=== PATIENT | female | born 1975 | race Caucasian/White ===

== ENCOUNTER 2018-04-08 12:07 | Emergency (ER) | payer SELFPAY ==
[2018-04-08 12:08] VITALS: BP 153/95; PULSE 74; RESP 16; TEMP 36.6; O2SAT 99; BMI 24.8
[2018-04-08] MEDS: HYDROmorphone 1 MG/ML Syringe IM (13:32)
--- NOTE | 2018-04-08 14:24 | ED.DCSUM_ITS ---
- ER Visit Summary Date of Service: 04/08/18 Chief Complaint: Abscess History of Present Illness: The patient is a [address] Cortez. She reports that she has an abscess medial left thigh that began March 26. She was seen at a [facility] in [place] 2 days ago and had an I&D performed. She states that since that time the pain and swelling has been worsening. She describes an aching pain is 10 out of 10 at worst and 7-10 currently. Is worsened by touching it. Is relieved by nothing. 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 She is currently on Bactrim and Keflex. She denies any fever or chills. Physical Examination: Vitals: Stable. Afebrile. General: Well-nourished and well-developed. Head: Normocephalic atraumatic. Neck: Supple, no lymphadenopathy. No JVD. Nontender. Cardiovascular: Regular rate and rhythm. No murmurs. Respiratory: No respiratory distress. Clear to auscultation bilaterally. Abdominal: Soft, nontender, nondistended, normal bowel sounds. No guarding, rebound, or peritoneal signs. Back: Nontender. Extremities: Nontender, no edema. Skin: Approximately 6 cm in diameter area of induration and erythema. No appreciable fluctuance. There is a 5 mm incision medial and inferior to this area. There is no drainage from this. Neurologic: Alert and oriented ?3. Cranial nerves II through XII are intact. Normal strength and sensation. Psych: Normal affect. Emergency Department Course and Treatment: I had a prolonged discussion with patient about treatment options and she opted for a for more formal incision and drainage. This was performed and she tolerated it well. She was given a milligram of Dilaudid IM prior to this. Treatment Plan: Patient will be discharged instructions to follow-up Dr. Koffi Godfrey in 2 days for wound check. Continue her Keflex and Bactrim. She will be given [place] for pain. Return to the emergency department for any worsening symptoms. Disposition: To home in improved and stable condition. Impression: 1. Abscess left thigh. 2. I&D. Procedure Note: Abscess was cleansed with chlorhexidine soap. Anesthetized with 1% lidocaine without epinephrine. An incision was made with an 11 scalpel blade. A moderate amount of pus was drained. Curved hemostats were used to break up loculations. The wound was copiously irrigated with normal saline. I placed the iodoform gauze between the incision that I have made and the small incision that she had from her previous I&D. The patient tolerated it well. This note was generated with [employer] dictation software. It may contain incorrect words, spelling, and punctuation that were not noted in review of the chart prior to signing ED Disposition - Plan for ED Patient: Disposition: Home or Assisted Living Chief Complaint: Abscess Instructions: ED Abscess IandD Prescriptions: Hydrocodone/Acetaminophen [[place] 5-325 Tablet] 1 - 2 each PO 4X/DAY PRN PRN 3 Days #12 tablet PRN Reason: Pain Referrals: Koffi Godfrey MD [STAFF PHYSICIAN] - 2 Days for wound check
[2018-04-08 14:38] VITALS: PULSE 71; RESP 17; O2SAT 95
== END 2018-04-08 14:40 | disposition home or self-care (01) ==
PROVIDERS: Emergency Provider Emergency Medicine; Family Provider Family Medicine; PCP Family Medicine
DX: L02.416 Cutaneous abscess of left lower limb (principal); B96.89 Other specified bacterial agents as the cause of diseases classified elsewhere; Z86.14 Personal history of Methicillin resistant Staphylococcus aureus infection
CPT/HCPCS: 10061; 10060; 99283

== ENCOUNTER → 2018-07-02 13:53 | Outpatient (CLI) | payer OTHER, MEDICAID, SELFPAY ==
[2018-07-02 15:52] LABS: Anion Gap 6 (5-15); BUN 15 mg/dL (7-18); BUN/Creat Ratio 22.1 RATIO (10-20); Calcium,Total 9.4 mg/dL (8.5-10.1); Chloride 104 mmol/L (98-107); Cholesterol 211 mg/dL (200); Creatinine, Serum 0.68 mg/dL (0.55-1.02); EST Glomerular Filtration Rate 100 mL/min (>60); Est Glom Filt Rate - Afr Amer 121 mL/min (>60); Glucose 63 mg/dL (74-106); High Density Lipoprotein 45 mg/dL; Potassium 4.5 mmol/L (3.5-5.1); Sodium Level 139 mmol/L (136-145); Triglycerides 157 mg/dL; Very Low Density Lipoprotein 31 mg/dL (5-40)
== END ==
PROVIDERS: Family Provider Family Medicine; PCP Family Medicine; Visit Provider Family Medicine
DX: I10 Essential (primary) hypertension (principal)
CPT/HCPCS: 36415; 80048; 80061

== ENCOUNTER → 2018-10-08 12:09 | Outpatient (CLI) | payer MEDICAID, SELFPAY ==
--- NOTE | 2018-10-08 12:15 | RAD_ITS ---
STUDY: X-RAY - LUMBAR SPINE REASON FOR EXAM: Female, 43 years old. Low back pain TECHNIQUE: 5 view(s) of the lumbar spine were obtained. COMPARISON: None FINDINGS: Normal lumbar lordosis. There is a levoscoliosis of the lumbar spine. There is a normal alignment of the vertebrae. Normal vertebral bodies and endplates. There is multi-level degenerative disc disease with multi-level disc space narrowing. There is no demonstrated fracture. The soft tissue structures are unremarkable. RAD/L/S Spine Min 4 Views IMPRESSION: Degenerative changes with a levoscoliosis. Electronically Signed: Amado Aguayo MD at 21:18 EST , Service support ,
== END ==
PROVIDERS: Family Provider Family Medicine; PCP Family Medicine; Referring Provider Nurse Practitioner Family; Visit Provider Nurse Practitioner Family
DX: M51.36 Other intervertebral disc degeneration, lumbar region (principal); M51.26 Other intervertebral disc displacement, lumbar region; M47.26 Other spondylosis with radiculopathy, lumbar region; M96.1 Postlaminectomy syndrome, not elsewhere classified
CPT/HCPCS: 72110

== ENCOUNTER 2018-10-18 15:30 | Outpatient (RCR) | payer MEDICAID, SELFPAY ==
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
--- NOTE | 2018-12-03 13:42 | HP.PT.NRP ---
HP - Discharge Summary (1) - Patient Information NORBERTO MENESES was seen in my office for initial evaluation on 10/14/18. The following Plan of Care was established for this patient: Initial Frequency: 2-3x /Week Initial Duration: 4-6 Weeks - Anticipated Interventions Patient/Client Instruction: Educate patient on: Condition, Plan of Care, Risk Factors, Benefits of Fitness Program For the Purpose of:: To improve self management Therapeutic Exercise to Include: Strength training, Body mechanics, Postural training, Flexibilty training, Gait and locomotor training, In an aquatic setting, Active ROM, Dynamic Lumbar Stabilization For the Purpose of:: To decrease pain, To increase ROM, To improve muscle performance and motor function, To increase tolerance to activity/condition/position, To improve ability of physical actions for home/community/work/leisure, To improve gait and locomotor functions This patient was last seen in our office 10/18/18. Pertinent comments regarding their Physical therapy will appear below: This patient has not returned to Physical Therapy and is appropriate to return to MD for further follow-up as needed. At this point I will be discontinuing this patient from physical therapy. I would be happy to see this patient again in the future if found appropriate by the physician. Thank you! Fadumo Hardin, PT, Cert MDT
== END 2018-10-18 19:00 | disposition home or self-care (01) ==
LOC: PT 15:30
PROVIDERS: Family Provider Family Medicine; PCP Family Medicine; Referring Provider Nurse Practitioner Family; Visit Provider Nurse Practitioner Family
DX: M51.36 Other intervertebral disc degeneration, lumbar region (principal); M79.10 Myalgia, unspecified site; M96.1 Postlaminectomy syndrome, not elsewhere classified; M54.16 Radiculopathy, lumbar region; M47.816 Spondylosis without myelopathy or radiculopathy, lumbar region
CPT/HCPCS: 97113; 97162; 97530

== ENCOUNTER 2018-11-04 15:58 | Emergency (ER) | payer MEDICAID, SELFPAY ==
[2018-11-04 15:59] VITALS: BP 152/95; PULSE 82; RESP 15; TEMP 36; O2SAT 100; BMI 26.2
[2018-11-04] MEDS: Ketorolac 15 MG/ML Vial IV (18:15)
--- NOTE | 2018-11-04 19:05 | ED.VISSUMM ---
- ER Visit Summary Date of Service: 11/04/18 Chief Complaint: Exacerbation of chronic left lumbar pain with radiation posterior left lower extremity to her toes History of Present Illness: The patient is a 43 F who presents with worsening low back pain since July. She is presently under the care of Dr. Napier, pain management. She denies bowel bladder dysfunction. Denies saddle paresthesia or anesthesia. She prefers to stand over sitting. She denies foot drop. She denies quadricep weakness going up or down steps. She denies fever or chills. She denies night sweats or weight loss. She denies IV drug use. She denies dysuria, frequency, urgency or hematuria. She denies symptoms of claudication. Please read her note for complete detail Physical Examination: Vital signs are marked for an elevated blood pressure 152/95. HEENT exam is unremarkable. Heart is regular without murmur, gallop or rub. S1 and S2 are normal. Lungs are clear to auscultation with good movement of air bilaterally. Abdomen soft nontender bowel sounds present normal. There is no CVA tenderness noted. Straight leg test elicits pain at 25-30 degrees on the left. Negative crossover test. Patella and ankle reflex are 2+ and symmetric. EHL is intact. Able to walk on heels and toes. Able to do one leg squat right and left. Reports abnormal sensation lateral medial aspect of the foot. DP and PT pulses are palpable. The remainder of exam is unremarkable. Test Results: None were obtained Emergency Department Course and Treatment: Since patient drove herself she was treated with 50 mg of Toradol. She was reassessed. She was not given opiate analgesia because she is in pain management and she has to drive herself home Treatment Plan: Follow-up with Dr. Napier and appropriate home-going instructions Disposition: Discharged home in stable and improved condition Impression: Exacerbation left lower back pain with sciatica This note was generated with [employer] dictation software. It may contain incorrect words, spelling, and punctuation that were not noted in review of the chart prior to signing ED Disposition - Plan for ED Patient: Disposition: Home or Assisted Living Instructions: ED Sciatica, ED Hypertension Poss Referrals: Richelle Cortez MD [Primary Care Provider] - 1-2 Weeks Additional Instructions: Follow-up with Dr. Whittaker for blood pressure reassessment in 1-2 weeks. Follow-up with Dr. Napier regarding back pain.
[2018-11-04 19:18] VITALS: BP 167/110; RESP 18
== END 2018-11-04 19:20 | disposition home or self-care (01) ==
PROVIDERS: Emergency Provider Emergency Medicine; Family Provider Family Medicine; PCP Family Medicine
DX: M54.42 Lumbago with sciatica, left side (principal); G89.29 Other chronic pain; Z72.0 Tobacco use
CPT/HCPCS: 96374; 99283; A4216

== ENCOUNTER 2019-03-30 13:05 | Emergency (ER) | payer MEDICAID, SELFPAY ==
[2019-03-30 13:06] VITALS: BP 147/80; PULSE 75; RESP 16; TEMP 36.8; O2SAT 97; BMI 24.0
--- NOTE | 2019-03-30 13:08 | ED.VISSUMM ---
- ER Visit Summary Date of Service: 03/30/19 Chief Complaint: Back and left leg pain History of Present Illness: The patient is a [address] Cortez. She reports that she has pain in her lower back that radiates down the back of her left leg to the level of her ankle. It is a sharp pain is 10 on 10 severity. Its worsened by movement, heat, or standing for prolonged periods of time. She taken Tylenol and Advil with minimal relief. Pain is 10 out of 10 currently and at worst. She reports that she has tingling in that leg that comes and goes. It is not tingling now. She denies any problems with her bowels or bladder. No groin numbness. No recent trauma. No fall, MVA, change in activity. She denies fever, chills, and other red flags. Physical Examination: Vitals: Stable. Afebrile. General: A&O x 3. NAD. Cardiovascular exam: Regular rate and rhythm, no murmur, rub or gallop. Respiratory exam: Clear to auscultation bilaterally. No wheezes or stridor. Abdominal exam: Soft, nontender, nondistended, normal bowel sounds. No peritoneal signs. Back: Diffuse moderate tenderness to palpation over the lumbar spine and the paraspinous musculature in the lumbar region. No point tenderness. Positive straight leg raise on the left at approximately 10 degrees while sitting. 5/5 DF, PF, EHL bilaterally. Normal sensation to light touch throughout. Extremity: No clubbing, cyanosis, or edema. Emergency Department Course and Treatment: Patient was given a dose of Toradol IM. An [facility] report was obtained which shows she is had no prescriptions for opiates since March 2018. Treatment Plan: Patient will be discharged with prescription for naproxen and [place]. Instructed to follow-up Dr. Cortez in 1 week if not improving. Return to the emergency department for any worsening symptoms. Disposition: To home in improved and stable condition. Impression: 1. Sciatica on left. This note was generated with [employer] software. It may contain incorrect words, spelling, and punctuation that were not noted in review of the chart prior to signing ED Disposition - Plan for ED Patient: Instructions: BACK PAIN w/ SCIATICA Prescriptions: Naproxen [Naprosyn] 500 mg PO BID #14 tablet Hydrocodone Bitart/Apap 5-325 [[place] 5MG-325MG] 1 tablet PO Q6H PRN PRN 3 Days #10 tablet PRN Reason: Pain Referrals: Richelle Cortez MD [Primary Care Provider] - 1 Week if not improving
[2019-03-30] MEDS: Ketorolac 60 MG/2 ML Vial IM (13:28)
== END 2019-03-30 14:06 | disposition home or self-care (01) ==
LOC: ED 13:37
PROVIDERS: Emergency Provider Emergency Medicine; Family Provider Family Medicine; PCP Family Medicine
DX: M54.42 Lumbago with sciatica, left side (principal); I10 Essential (primary) hypertension; Z79.899 Other long term (current) drug therapy
CPT/HCPCS: 96372; 99282

== ENCOUNTER → 2019-04-28 17:04 | Outpatient (CLI) | payer OTHER, SELFPAY ==
[2019-03-30 13:06] VITALS: BMI 24.0
--- NOTE | 2019-04-28 17:09 | RAD_ITS ---
STUDY: X-RAY - LUMBAR SPINE REASON FOR EXAM: Female, 43 years old. Back pain radiating to left leg TECHNIQUE: 4 view(s) of the lumbar spine were obtained. COMPARISON: October 08, 2018 FINDINGS: Normal lumbar lordosis. There is moderate levo scoliosis. Grade 1 spondylolisthesis at L4-5. No evidence for acute fracture or subluxation.. Mild multilevel disc space narrowing and ossific spurring. The soft tissue structures are unremarkable. No significant change since prior study RAD/Lumbar Spine 2 or 3 Views IMPRESSION: Scoliosis and degenerative changes. No evidence for acute fracture or other significant bony pathology Electronically Signed: Yandel Deleon MD at 18:58 EDT , Service support ,
== END ==
PROVIDERS: Family Provider Family Medicine; PCP Family Medicine; Referring Provider Family Medicine; Visit Provider Family Medicine
DX: M79.605 Pain in left leg (principal); M41.9 Scoliosis, unspecified
CPT/HCPCS: 72100

== ENCOUNTER 2019-04-30 17:14 | Emergency (ER) | payer OTHER, SELFPAY ==
[2019-04-30 17:16] VITALS: BP 134/88; PULSE 101; RESP 17; TEMP 36.2; O2SAT 99; BMI 24.0
[2019-04-30 17:29] VITALS: RESP 16
[2019-04-30] MEDS: Naproxen 250 MG Tablet 500 MG PO (17:33)
[2019-04-30] MEDS: HYDROcodone Bitartrate/Apap 5/325 Tablet PO (17:33)
--- NOTE | 2019-04-30 17:37 | ED.VISSUMM ---
- ER Visit Summary Date of Service: 04/30/19 Chief Complaint: Postop pain History of Present Illness: The patient is a 43 F who had a carpal tunnel release and cyst removed by Dr. Quiroz earlier today. She was instructed to come to the emergency department as a private outpatient. Physical Examination: Patient seen by orthopedist directly Test Results: Applicable Emergency Department Course and Treatment: Outpatient of orthopedist, Dr. shamir Alejandre Treatment Plan: Per surgeon Disposition: Discharge to home Impression: Postop pain This note was generated with [employer] dictation software. It may contain incorrect words, spelling, and punctuation that were not noted in review of the chart prior to signing ED Disposition - Plan for ED Patient: Disposition: Home or Assisted Living Diagnosis: Postoperative pain of extremity Instructions: POST OP WOUND CHECK, Pain Referrals: Richelle Cortez MD [Primary Care Provider] - Diana Quiroz DO [STAFF PHYSICIAN] - [facility] appointment
--- NOTE | 2019-04-30 17:56 | ED.DCSUM_ITS ---
History of Present Illness Chief Complaint: Lower Extremity Injury Informant: Patient Onset: Month(s) Context: Sudden Onset - Suddenly worse over the past several days Chronic pain exacerbated by: Nothing in particular Injury: - - Nothing per patient Timing: Continuous Quality: Aching, Throbbing Location: Lumbar, Buttock, Left Leg - Posteriorly to the midfoot Current Severity: Mild Maximum Severity: Moderate Worsened by: improves with: Movement, Bending Relieved by: Nothing Associated Symptoms: Radiation to Left Leg, - - No bowel bladder dysfunction. No saddle paresthesia anesthesia. Reports decreased sensation left lower extremity. The decreased sensation is not in a dermatomal distribution. She denies foot drop. She denies quadricep weakness. Only positives were circled because negatives could not be\because template is incomplete Narrative: Patient is a 43-year-old woman with history of back pain who presents with radicular pain/sciatica left side. Pain is worse over the past couple days. She denies any neurologic deficits or symptoms and has no red flags. There is no history of trauma. She had outpatient x-rays this past week. Prior similar symptoms: Yes Recent Illness/Hospitalization: Yes - Past Medical History (1) Chronic pain syndrome Status: Chronic (2) Depression Status: Chronic Past Medical History - Allergies and Home Meds Allergies/Adverse Reactions: Allergies bee venom protein (honey bee) Allergy (Verified 04/30/19 17:15) Angioedema Primary Care Physician: Diana Quiroz DO [STAFF PHYSICIAN] - [facility] appointment Richelle Cortez MD [Primary Care Provider] - Surgical History: noncontributory Lives: Spouse/ Significant Other, With Family Smoking Status: Never smoker Alcohol: Rare Drugs: None Review of Systems General: Denies: Chills, Fever, Malaise, Subjective, Sweats, Weight loss Eyes: Denies: Visual changes - bilaterally, Blurred Vision - bilaterally, Diplopia ENT: Denies: Rhinorrhea, Sore throat Cardiovascular: Denies: Chest pain, Palpitations Respiratory: Denies: Dyspnea, Cough, Dyspnea on exertion Gastrointestinal: Denies: Abdominal pain, Nausea, Vomiting, Diarrhea, Melena, Hematochezia Genitourinary: Denies: Dysuria, Hematuria, Frequency Musculoskeletal: Reports: Back pain, Extremity Pain. Denies: Myalgias, Arthralgias, Neck pain, Swelling Skin: Denies: Rash, Wounds Neurological: Denies: Headache, Weakness, Parasthesia, Numbness - Left lower extremity Endocrine: Denies: Polyuria, Polydipsia Hematologic: Denies: Easy bruising, Easy bleeding Physical Exam Vital Signs/Narrative: Vital Signs Temp Pulse Resp BP Pulse Ox 04/30/19 17:29 16 04/30/19 17:16 97.1 F L 101 H 17 134/88 H 99 Inital Vital Signs reviewed: Yes Back: Normal Inspection, Paraspinal Tenderness, Negative SLR - Right, Positive SLR - Left. Negative for: Nontender, Surgical Scar, Spinal tenderness, CVA tenderness, Positive SLR - Right, Negative SLR - Left Extremeties: Nontender, No edema, Strong Pulses, Symmetric Skin: Normal color, No rash. Negative for: Cyanosis, Diaphoresis, Jaundice, No Trauma Neuro: Alert, Oriented, Normal Strength, Normal Sensation, Normal DTR, Normal Gait - No foot drop was noted. Patient able to walk on heels and toes. Patient was able to perform 1 legged squat right and left side. Normal sensation on the lateral, dorsal and medial side of right and left foot., Normal Reflexes, Normal Cerebellar Reflexes: Right Patellar, Right Achilles, Left Patellar, Left Achilles, - - DTR 2+ symmetric. Negative for: Right Clonus, Right Babinski, Left Clonus, Left Babinski Psychological: Normal affect, Normal Mood Diagnostic/Tx/Re-eval - Medical Decision Making Patient with radicular pain and positive straight leg test concerned she has a L5 disc. Since there are no objective neurologic deficits emergent MRI is not indicated. Patient was medicated with NSAID and opiate analgesia. She was discharged with short course of opiate analgesia and instructed follow-up with her primary care physician. She states she was on gabapentin at one time and was not helpful. ED Disposition - Plan for ED Patient: Disposition: Home or Assisted Living Diagnosis: Left-sided low back pain with sciatica Instructions: BACK PAIN w/ SCIATICA Prescriptions: Naproxen [Naprosyn] 500 mg PO BID #14 tab Prescription Printed Hydrocodone Bitart/Apap 5-325 [[place] 5MG-325MG] 1 tab PO Q6H PRN PRN 3 Days #10 tab PRN Reason: Pain Prescription Printed Referrals: Richelle Cortez MD [Primary Care Provider] - 1 Week if not improving
[2019-04-30 18:17] VITALS: BP 140/88; PULSE 86; RESP 16; O2SAT 94
== END 2019-04-30 18:18 | disposition home or self-care (01) ==
PROVIDERS: Emergency Provider Emergency Medicine; Family Provider Family Medicine; PCP Family Medicine
DX: M54.42 Lumbago with sciatica, left side (principal)
CPT/HCPCS: 99283

== ENCOUNTER 2019-05-29 18:59 | Emergency (ER) | payer MEDICAID, SELFPAY ==
[2019-05-29 19:00] VITALS: BP 153/84; PULSE 89; RESP 16; TEMP 36.1; O2SAT 97; BMI 26.4
--- NOTE | 2019-05-29 19:36 | ED.VISSUMM ---
- ER Visit Summary Date of Service: 05/29/19 Chief Complaint: Sciatica History of Present Illness: The patient is a 43 F who presents with left-sided sciatica that has been getting worse over the past several days. Patient states she normally takes Vicodin for this but is out. Patient states her primary care physician is unable to refill her prescription for this. Patient denies any bowel or bladder changes. Patient denies any saddle anesthesia. Patient does admit to some numbness and tingling in her left leg. Patient states the pain is worse with standing after sitting for a prolonged time. Physical Examination: Vital signs are stable. Patient is afebrile. Patient is in no acute distress. Musculoskeletal exam reveals tenderness over the left lower lumbar paraspinal area and over the left sciatic notch. Strength is 5/5 bilateral and lower extremities. There are no sensory deficits noted. Deep tendon reflexes were 2/4 bilaterally. Range of motion of the lumbar spine was slightly limited secondary to pain. Pedal pulses are equal bilaterally. Emergency Department Course and Treatment: Patient was given an injection of morphine here. Patient was advised that we do not refill narcotic pain prescriptions. Patient was instructed to follow-up with her primary care physician in 3 to 5 days for further management of her sciatic pain. She was instructed to use ice to the area. Patient was also instructed to take ibuprofen as needed for pain. Patient understood and was agreeable with the plan. All questions were answered. Disposition: Discharge home Impression: Sciatica This note was generated with [employer] dictation software. It may contain incorrect words, spelling, and punctuation that were not noted in review of the chart prior to signing ED Disposition - Plan for ED Patient: Disposition: Home or Assisted Living Diagnosis: Sciatica Instructions: BACK PAIN w/ SCIATICA Referrals: Richelle Cortez MD [Primary Care Provider] - 3-5 Days
[2019-05-29] MEDS: Morphine 4 MG/ML Syringe IM (19:55)
[2019-05-29 20:23] VITALS: PULSE 76; RESP 18; O2SAT 98
== END 2019-05-29 20:25 | disposition home or self-care (01) ==
LOC: ED 19:59
PROVIDERS: Emergency Provider Emergency Medicine; Family Provider Family Medicine; PCP Family Medicine
DX: M54.32 Sciatica, left side (principal); I10 Essential (primary) hypertension
CPT/HCPCS: 96372; 99282

== ENCOUNTER 2019-07-03 17:00 | Outpatient (RCR) | payer MEDICAID, SELFPAY ==
--- NOTE | 2019-05-15 18:11 | HP.PTEVAL ---
Patient's Visit Information NORBERTO MENESES is a 43 year old F referred to Physical Therapy by Richelle Cortez MD with a diagnosis of LBP. Date of Evaluation: 05/15/19 Physical Therapist: Shadi Randolph, PT, [facility] - Visit Plan Frequency: 3x /Week Duration: 4 Weeks Plan: Postural education, prone lying on elbows progression to REIL when tolerated, core stab ex's, US, IF with - Subjective Findings: Pt reports she has had LBP for greater than one year. Pt reports she was treated by PT and the pain went away, but her pain is back at this time. Pt reports her pain had an insidious onset in nature. Pt reports she has been treated by a chiropractor, but has had very minimal improvements at this time. Pt reports she has pain that radiates into her L foot that is constant. Pt reports she has had xrays which revealed OA. Pt reports all activity increases her pain. Pt reports sleep difficulty secondary to pain. Pt reports ice will temporarily help haer pain. 9/10 pain at rest, 10/10 at worst. 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 - Pain LBP Pain Intensity (Out of 10): 9 Pain Intensity Range: 10 - Objective Neuro: B LE sensation is WNL to light touch. B patellar reflex= 2/3. MMT: R LE 5/5 throughout. L LE 3+/5 and painful throughout. L/S ROM: Pt is severely limited with ext and L SB ROM. Others are WNL. Special tests: Positive ANRS. Repeated moivements: NT. prone on elbows 1 min x 3 decreased pain minimally - Goals Goal 1:: Decrease LBP x 50% to aid with sleep Goal Time Frame: 2-4 Weeks Goal 2:: Increase L/S ROM x 1 grade to aid with decreasing pain Goal Time Frame: 2-4 Weeks Goal 3:: Decrease L LE radiculopathy x 50% to aid with tolerance for ambulation Goal Time Frame: 2-4 Weeks Goal 4:: I WITH HEP Goal Time Frame: 2-4 Weeks - Rehabilitation Potential Physical Therapy Diagnosis: Pt has LBP, decreased L/S ROM, and L LE radiculopathy secondary to L/S disc derrangement. Rehabilitation Potential: Good - Anticipated Interventions Patient/Client Instruction: Educate patient on: Condition, Plan of Care For the Purpose of:: To improve self management Therapeutic Exercise to Include: Strength training, Endurance training, Body mechanics, Postural training, Dynamic Lumbar Stabilization, Kevon Exercises For the Purpose of:: To decrease pain, To increase ROM, To improve muscle performance and motor function Cryotherapy (ice pack, ice massage): Yes For the Purpose of:: To decrease pain Thank you for the opportunity to evaluate your patient. For Medicare and Medicare HMO plans, please review the plan of care and approve it. It will need to be FAXED BACK to us at [phone] for Medicare purposes. For Medicare only, by signing this I certify the plan of care. Please let me know if there are questions or concerns regarding this plan of care. Physician Signature: Date:
--- NOTE | 2019-07-03 17:22 | HP.PTDCSUM ---
HP - PT D/C Summary It has been my pleasure to treat NORBERTO MENESES under orders from Richelle Cortez MD, for the diagnosis of LBP for a total of 12 visit(s). Discharge Date: Please see the following information for a summary of their discharge status. - Subjective Subjective: Pt reports she is definitely getting better. Ready for HEP - Pain LBP Pain Intensity (Out of 10): 5 LEFT LEG Pain Intensity (Out of 10): 5 - Overall Improvement % Improvement: 50 - Objective Objective/Function: LBP is 5/10 at this time. L/S ROM is WNL with exception to ext which is moderately limited. L LE radiculopathy is 50% better at this time. I with HEP. Progressing well toward Rx goals - Goals Goal 1:: Decrease LBP x 50% to aid with sleep Goal Progress: Progressing Goal 2:: Increase L/S ROM x 1 grade to aid with decreasing pain Goal Progress: Progressing Goal 3:: Decrease L LE radiculopathy x 50% to aid with tolerance for ambulation Goal Progress: Goal Met Goal 4:: I WITH HEP Goal Progress: Goal Met - Plan Plan: discontinue - D/C Information If there are questions or concerns regarding this patient's physical therapy, please feel free to call me at [phone]. Thank you for the referral of this patient. Sincerely, Shadi Randolph, PT, ATC
== END 2019-07-03 19:00 | disposition home or self-care (01) ==
LOC: PT 17:00
PROVIDERS: Family Provider Family Medicine; PCP Family Medicine; Referring Provider Family Medicine; Visit Provider Family Medicine
DX: M54.32 Sciatica, left side (principal)
CPT/HCPCS: 97014; 97110; 97161; 97530; G0283

== ENCOUNTER → 2020-04-13 15:51 | Outpatient (CLI) | payer MEDICAID, SELFPAY ==
[2020-04-13 17:23] LABS: Cholesterol 209 mg/dL (200); High Density Lipoprotein 36 mg/dL; Triglycerides 274 mg/dL; Very Low Density Lipoprotein 55 mg/dL (5-40)
[2020-04-13 17:29] LABS: Hemoglobin A1c 5.1 % (3.8-5.6)
[2020-04-13 19:10] LABS: Chlamydia Trachomatis by PCR Negative (Negative); Neisserai gonorrhoeae by PCR Negative (Negative); Probe Check PASS; Sample Adequacy Control PASS; Specimen Processing Control PASS
[2020-04-14 09:08] LABS: HIV - WCH Non-Reactive (Nonreactive); Hepatitis B Surface Antibody Reactive; Hepatitis C Antibody Non-Reactive (Nonreactive)
[2020-04-15 02:04] LABS: Rapid Plasmin Reagin (RPR) NONREACTIVE (NONREACTIVE)
[2020-04-17 08:46] LABS: HPV APTIMA, High Risk Negative (Negative)
== END ==
PROVIDERS: PCP Family Medicine; Visit Provider Obstetrics & Gynecology
DX: Z12.4 Encounter for screening for malignant neoplasm of cervix (principal); Z11.3 Encounter for screening for infections with a predominantly sexual mode of transmission; Z13.220 Encounter for screening for lipoid disorders; Z13.1 Encounter for screening for diabetes mellitus
CPT/HCPCS: 36415; 80061; 83036; 86592; 86703; 86706; 86803; 87491; 87591; 87624; 88175; G0145

== ENCOUNTER → 2020-05-03 13:47 | Outpatient (CLI) | payer MEDICAID, SELFPAY ==
--- NOTE | 2020-05-03 13:49 | BI_ITS ---
MAMMOGRAPHY - BILATERAL SCREENING REASON FOR EXAM: Female, 44 years old. Routine annual screening examination. PERTINENT HISTORY: Non-contributory. TECHNIQUE: Digital bilateral breast shelly (3D mammographic acquisition) in the CC and MLO projections. 2-D mediolateral oblique (MLO) and craniocaudad (CC) views of both breasts were obtained. CAD: Full Field Digital Mammography with Computer Added Detection was performed. COMPARISON: Comparison is made with prior study of 10/31/2012. FINDINGS: Breast Composition: The breasts are heterogeneously dense, which may obscure small masses. There are no dominant masses or suspicious calcifications. Stable small benign appearing bilateral axillary lymph nodes. No other significant abnormalities are identified. There has been no significant change since the prior study. BI/SCREEN MAMM (CAD) W/SHELLY BILAT IMPRESSION: Stable bilateral screening mammogram. Yearly follow-up mammogram recommended. (A) ASSESSMENT CATEGORY: BIRADS Category 2: Benign. A letter regarding these results will be sent to the patient by the facility within 30 days. Approximately 10% of breast cancers are not detected by mammography. A normal mammogram should not delay biopsy of a clinically suspicious abnormality. [id number] Electronically Signed: Milton Gutierrez, at 15:03 EDT , Service support ,
== END ==
PROVIDERS: PCP Family Medicine; Referring Provider Obstetrics & Gynecology; Visit Provider Obstetrics & Gynecology
DX: Z12.31 Encounter for screening mammogram for malignant neoplasm of breast (principal)
CPT/HCPCS: 77063; 77067

== ENCOUNTER → 2021-07-25 15:15 | Outpatient (CLI) | payer MEDICAID, SELFPAY ==
[2021-07-26 09:11] LABS: HIV - WCH Non-Reactive (Nonreactive); Hepatitis B Surface Antigen Non-Reactive (Nonreactive); Hepatitis C Antibody Non-Reactive (Nonreactive); Syphilis Antibodies Non-reactive
[2021-07-28 04:07] LABS: Chlamydia By Nucleic Acid AMP Negative (Negative)
[2021-07-28 13:39] LABS: Gonococcus By Nucleic Acid AMP Negative (Negative)
== END ==
PROVIDERS: PCP Family Medicine; Visit Provider Obstetrics & Gynecology
DX: Z11.3 Encounter for screening for infections with a predominantly sexual mode of transmission (principal)
CPT/HCPCS: 36415; 86703; 86780; 86803; 87340; 87491; 87591

== ENCOUNTER 2021-10-10 15:29 | Outpatient (CLI) | payer MEDICAID, SELFPAY ==
[2021-10-10 18:33] LABS: Anion Gap 6 (5-15); BUN 13 mg/dL (7-18); BUN/Creat Ratio 17.9 RATIO (10-20); Calcium,Total 9.1 mg/dL (8.5-10.1); Chloride 107 mmol/L (98-107); Cholesterol 220 mg/dL (200); Creatinine, Serum 0.73 mg/dL (0.55-1.02); EST Glomerular Filtration Rate 91 mL/min (>60); Est Glom Filt Rate - Afr Amer 110 mL/min (>60); Glucose 85 mg/dL (74-106); High Density Lipoprotein 36 mg/dL; Potassium 4.1 mmol/L (3.5-5.1); Sodium Level 138 mmol/L (136-145); Triglycerides 305 mg/dL; Very Low Density Lipoprotein 61 mg/dL (5-40)
[2021-10-10 18:38] LABS: Hemoglobin A1c 5.2 % (3.8-5.6)
[2021-10-10 18:50] LABS: Microalbumin,Random Urine 15.8 mg/L (NO RANGE EST.); Microalbumin:Creatinine Ratio 8.7 mg/g CRE (<30 mg/g CRE)
== END 2021-10-10 23:59 | disposition short-term general hospital (02) ==
LOC: MFPLAB 15:30
PROVIDERS: PCP Family Medicine; Visit Provider Family Medicine
DX: R73.02 Impaired glucose tolerance (oral) (principal); I10 Essential (primary) hypertension
CPT/HCPCS: 36415; 80048; 80061; 82043; 82570; 83036

== ENCOUNTER → 2022-12-26 | Outpatient (CLI) | payer MEDICAID, SELFPAY ==
[2022-12-26 13:41] LABS: AST(SGOT) 17 U/L (15-37); Alanine Aminotransfer ALT/SGPT 27 U/L (13-56); Anion Gap 4 (5-15); BUN 15 mg/dL (7-18); BUN/Creat Ratio 21.9 RATIO (10-20); Chloride 107 mmol/L (98-107); Cholesterol 215 mg/dL (200); Creatinine, Serum 0.68 mg/dL (0.55-1.02); EST Glomerular Filtration Rate 97 mL/min (>60); Est Glom Filt Rate - Afr Amer 117 mL/min (>60); Glucose 77 mg/dL (74-106); High Density Lipoprotein 45 mg/dL; Potassium 3.8 mmol/L (3.5-5.1); Sodium Level 137 mmol/L (136-145); Triglycerides 156 mg/dL; Very Low Density Lipoprotein 31 mg/dL (5-40)
== END | disposition home or self-care (01) ==
LOC: MFPLAB 10:39
PROVIDERS: PCP Family Medicine; Referring Provider Family Medicine; Visit Provider Family Medicine
DX: I10 Essential (primary) hypertension (principal); E78.5 Hyperlipidemia, unspecified
CPT/HCPCS: 36415; 80048; 80061; 84450; 84460

== ENCOUNTER → 2025-04-07 | Outpatient (CLI) | payer OTHER, SELFPAY ==
--- NOTE | 2025-04-07 16:15 | RAD_ITS ---
PROCEDURE: KNEE 4 OR MORE VIEWS 04/07/2025 REASON FOR EXAM: PAIN TECHNIQUE: KNEE 4 OR MORE VIEWS COMPARISON: none RAD/Knee 4 or More Views IMPRESSION: No acute fracture or dislocations. No significant degenerative changes. Minimal joint effusion. Diffuse minimal soft tissue edema. no radiographic foreign body. Reading Location: [facility]
--- NOTE | 2025-04-07 16:15 | RAD_ITS ---
PROCEDURE: LUMBAR SPINE 2 OR 3 VIEWS 04/07/2025 REASON FOR EXAM: BACK PAIN TECHNIQUE: LUMBAR SPINE 2 OR 3 VIEWS COMPARISON: 04/28/2019 FINDINGS: Moderate S shaped scoliosis. Grade 1 anterolisthesis L4. Severe and diffuse facet arthritis, L3 through S1. Multilevel mild/moderate disc space narrowing, more severe at the thoracic lumbar junction. No acute bone or soft tissue pathology. RAD/Lumbar Spine 2 or 3 Views IMPRESSION: Lumbar spine scoliosis and degeneration. Reading Location: [facility]
== END | disposition home or self-care (01) ==
LOC: MTRAD 16:07
PROVIDERS: PCP Family Medicine; Referring Provider Family Medicine; Visit Provider Family Medicine
DX: M25.562 Pain in left knee (principal); M51.369 Other intervertebral disc degeneration, lumbar region without mention of lumbar back pain or lower extremity pain
CPT/HCPCS: 72100; 73564

== ENCOUNTER → 2025-07-08 | Outpatient (CLI) | payer OTHER, SELFPAY ==
[2025-07-08 12:50] VITALS: BP 164/107; PULSE 70; RESP 16; TEMP 36.7; O2SAT 98; BMI 31.2
--- NOTE | 2025-07-08 12:55 | RAD_ITS ---
PROCEDURE: LUMBAR MYELOGRAM 07/08/2025 REASON FOR EXAM: PAIN, SPONDY TECHNIQUE: Procedure Code: RADMY Modality: DX Procedure: LUMBAR MYELOGRAM Fluoroscopy time: 29 seconds. Dose: 28.1 mGy. COMPARISON: Lumbar spine series 04/07/2020. FINDINGS: Procedure: Following informed consent, an using standard sterile technique, a fluoroscopically guided lumbar myelogram was performed. 2% lidocaine local anesthesia was followed by placement of a 3.5 in 22 gauge spinal needle into the spinal canal at the L2 level. After confirming appropriate placement, approximately 17 mL Isovue M 200 was then injected into the thecal sac, with fluoroscopic confirmation. No complication was encountered, in the patient proceeded to CT imaging following bilateral decubitus positioning. RAD/Lumbar Myelogram IMPRESSION: Successful fluoroscopically guided lumbar myelogram. CT to follow. Reading Location: [place] [id number]
[2025-07-08] MEDS: Lidocaine 2% (5ml sdv) 5 ML VIAL.MPF INFILT (13:14)
--- NOTE | 2025-07-08 13:33 | CT_ITS ---
PROCEDURE: SPINE LUMBAR WITH CONTRAST 07/08/2025 REASON FOR EXAM: PAIN, SPONDY TECHNIQUE: Procedure Code: CTSPLW Modality: CT Procedure: SPINE LUMBAR WITH CONTRAST Intrathecal contrast was administered on a separate examination One or more dose reduction techniques were used (e.g., Automated exposure control, adjustment of the mA and/or kV according to patient size, use of iterative reconstruction technique). RADIATION DOSE SUMMARY: DLP: 871 mGycm COMPARISON: Lumbar myelogram from 08 July 2025 and lumbar spine radiographs from 02 June 2025 FINDINGS: Grade 1 T12 on L1 retro spondylolisthesis as well as grade 1 anterior spondylolisthesis of L4 on L5 both without pars interarticularis defects. T12-L1: Right paracentral disc protrusion with moderate canal stenosis and mild bilateral neural foraminal narrowing. Loss of disc height. L1-2: Broad-based disc bulge with minimal canal stenosis and no neural foraminal narrowing. L2-3: Endplate hypertrophy with right paracentral disc bulge. Loss of disc height. Mild canal stenosis and bilateral neural foraminal narrowing, [id number]-left. L3-4: Left paracentral broad-based disc bulge with mild canal stenosis. Facet joint as well as endplate hypertrophy. Loss of disc height. Moderate left and mild-moderate right neural foraminal narrowing. L4-5: Moderate canal stenosis with uncovering of the disc from spondylolisthesis resulting in a functional [id number] achp-xmlbocz-wbdr-right neural foraminal narrowing. Left facet joint arthrosis. L5-S1: Broad-based disc bulge with mild loss of disc height posteriorly. Mild neural foraminal narrowing on the left. Sacrum: Proliferative degenerative changes of the sacroiliac joints, symmetric and mild. Expiratory contrast is noted within the ureters. Sigmoid diverticulosis. Atheromatous changes of the aorta. CT/Spine Lumbar WITH Contrast IMPRESSION: Multilevel degenerative disc disease of the lumbar spine with areas of canal st enosis and neural foraminal narrowing predominantly relating to spondylolisthesis and uncovering of the disc resultin g in functional neural foraminal narrowing particularly at the L4-5 level. Reading Location: [place] [id number]
[2025-07-08 13:43] VITALS: BP 161/87; PULSE 66; RESP 16; O2SAT 97
[2025-07-08 14:19] VITALS: BP 155/88; PULSE 68; RESP 16; O2SAT 97
== END | disposition home or self-care (01) ==
PROVIDERS: PCP Family Medicine; Referring Provider Student in an Organized Health Care Education/Training Program; Visit Provider Student in an Organized Health Care Education/Training Program
DX: M54.16 Radiculopathy, lumbar region (principal); M43.16 Spondylolisthesis, lumbar region; M41.9 Scoliosis, unspecified
CPT/HCPCS: 62304; 72132; Q9965